=== PATIENT | female | born 1965 | race Caucasian/White ===

== ENCOUNTER → 2017-11-15 | Outpatient (CLI) | payer BC, OTHER ==
[~2017-11-15] MED LIST: OMEPRAZOLE MAGN20 MG PO; Ranitidine HCl300 MG PO; SUCR1 PO; SYNTHROID175 MCG PO; Synthroid/Levo0.2 MG PO
== END ==
LOC: LAB SHORT 12:21 → LAB 12:21
DX: R10.33 Periumbilical pain (principal)
CPT/HCPCS: 87086

== ENCOUNTER → 2017-11-17 | Outpatient (CLI) | payer BC, OTHER | END | disposition home or self-care (01) | LOC: LAB SHORT 14:46 → LAB 14:46 | PROVIDERS: Nurse Practitioner Women's Health | DX: Z12.4 Encounter for screening for malignant neoplasm of cervix (principal) | CPT/HCPCS: 87624; G0123 ==

== ENCOUNTER → 2018-02-13 | Outpatient (CLI) | payer BC, OTHER ==
[2018-02-13 17:01] LABS: BASOPHILS ABSOLUTE AUTO 0.03 K/mm3 (0.00-0.23); BASOPHILS PERCENT AUTO 1 % (0-2); EOSINOPHILS ABSOLUTE AUTO 0.27 K/mm3 (0.00-0.68); EOSINOPHILS PERCENT AUTO 7 % (0-6); Hematocrit 35.6 % (33.0-51.0); Hemoglobin 11.8 g/dL (11.5-16.0); IMMATURE GRAN ABSOLUTE AUTO 0.01 K/mm3 (0.00-0.10); IMMATURE GRAN PERCENT AUTO 0 % (0-1); LYMPHOCYTES ABSOLUTE AUTO 1.68 K/mm3 (0.84-5.20); LYMPHOCYTES PERCENT AUTO 40 % (21-46); MONOCYTES ABSOLUTE AUTO 0.42 K/mm3 (0.16-1.47); MONOCYTES PERCENT AUTO 10 % (4-13); Mean Corpuscular HGB 29.5 pg (26.0-34.0); Mean Corpuscular HGB Conc 33.1 g/dL (31.5-36.5); Mean Corpuscular Volume 89 fL (80-100); Mean Platelet Volume 9.8 fL (9.1-12.4); NEUTROPHILS ABSOLUTE AUTO 1.75 K/mm3 (1.96-9.15); NEUTROPHILS PERCENT AUTO 42 % (41-73); Platelet Count 219 K/mm3 (150-400); RDW Coefficient Variation 13.7 % (11.7-14.2); White Blood Cell Count 4.16 K/mm3 (4.00-11.30)
[2018-02-13 17:35] LABS: Alanine Aminotransfer (ALT/SGP 42 U/L (12-78); Albumin, Blood 3.9 g/dL (3.4-5.0); Albumin/Globulin Ratio 1.2 (0.8-1.8); Alk Phos 71 U/L (50-136); Anion Gap 8 mmol/L (6-16); Aspartate Aminotrans (AST/SGOT 24 U/L (12-37); Bilirubin, Total 0.6 mg/dL (0.1-1.0); Blood Urea Nitrogen 13 mg/dL (8-24); Bun/Creatinine Ratio 14.4 (12.0-20.0); CO2, Blood 26 mmol/L (21-32); Calcium, Blood 8.2 mg/dL (8.5-10.1); Chloride, Blood 105 mmol/L (98-108); Globulin, Blood 3.3 g/dL (2.2-4.0); Glomerular Filtration Rate >60 (60-); Glucose, Blood 116 mg/dL (70-99); Potassium, Blood 3.5 mmol/L (3.5-5.5); Sodium, Blood 139 mmol/L (136-145); Total Protein, Blood 7.2 g/dL (6.4-8.2)
== END | disposition home or self-care (01) ==
LOC: LAB SHORT 16:56 → LAB EV 16:56
PROVIDERS: Physician Assistant
DX: R53.83 Other fatigue (principal)
CPT/HCPCS: 80053; 82607; 84443; 85025

== ENCOUNTER 2018-03-03 13:41 | Emergency (ER) | payer BC, OTHER ==
[~2018-03-03] VITALS: Ht 167.6 cm; Wt 93.0 kg
[2018-03-03] MEDS ORDERED: LEVSOD137 PO (13:53)
[2018-03-03] MEDS ORDERED: LOSA25 PO (13:53)
[2018-03-03] MEDS ORDERED: PROG100 PO (13:53)
[2018-03-03] MEDS ORDERED: ESTRADIOL1 EAC1 TD (13:53)
[2018-03-03] MEDS ORDERED: FURO20 PO (13:54)
[2018-03-03] MEDS ORDERED: POTCHL10ER PO (13:55)
[2018-03-03] MEDS ORDERED: CYCL10 PO (15:27)
== END 2018-03-03 15:35 | disposition home or self-care (01) ==
LOC: ER 13:41
DX: T14.8XXA Other injury of unspecified body region, initial encounter (principal); M54.5 Low back pain; M25.562 Pain in left knee; M25.552 Pain in left hip; M25.521 Pain in right elbow; W18.30XA Fall on same level, unspecified, initial encounter; Z88.2 Allergy status to sulfonamides; Z88.8 Allergy status to other drugs, medicaments and biological substances; Z91.041 Radiographic dye allergy status
CPT/HCPCS: 72100; 73070; 73502; 73562-LT; 99284-25

== ENCOUNTER 2018-04-20 20:33 | Emergency (ER) | payer BC, OTHER ==
[~2018-04-20] VITALS: Ht 167.6 cm; Wt 93.0 kg
[~2018-04-20 20:33] MED LIST changes: +CYCL10 PO; +ESTRADIOL1 EAC1 TD; +FURO20 PO; +LEVSOD137 PO; +LOSA25 PO; +POTCHL10ER PO; +PROG100 PO
== END 2018-04-20 21:30 | disposition left against medical advice (07) ==
LOC: ER 20:33
DX: Z53.21 Procedure and treatment not carried out due to patient leaving prior to being seen by health care provider (principal)

== ENCOUNTER → 2018-08-17 | Outpatient (CLI) | payer BC, OTHER | END | disposition home or self-care (01) | LOC: LAB SHORT 17:24 → LAB 17:24 | DX: N89.8 Other specified noninflammatory disorders of vagina (principal) | CPT/HCPCS: 87070; 87205 ==

== ENCOUNTER → 2018-11-20 | Outpatient (CLI) | payer BC, OTHER ==
[2018-11-20 11:55] LABS: BASOPHILS ABSOLUTE AUTO 0.04 K/mm3 (0.00-0.23); BASOPHILS PERCENT AUTO 1 % (0-2); EOSINOPHILS ABSOLUTE AUTO 0.24 K/mm3 (0.00-0.68); EOSINOPHILS PERCENT AUTO 4 % (0-6); Hematocrit 34.8 % (33.0-51.0); Hemoglobin 10.7 g/dL (11.5-16.0); IMMATURE GRAN ABSOLUTE AUTO 0.03 K/mm3 (0.00-0.10); IMMATURE GRAN PERCENT AUTO 1 % (0-1); LYMPHOCYTES ABSOLUTE AUTO 2.18 K/mm3 (0.84-5.20); LYMPHOCYTES PERCENT AUTO 39 % (21-46); MONOCYTES ABSOLUTE AUTO 0.47 K/mm3 (0.16-1.47); MONOCYTES PERCENT AUTO 8 % (4-13); Mean Corpuscular HGB 27.2 pg (26.0-34.0); Mean Corpuscular HGB Conc 30.7 g/dL (31.5-36.5); Mean Corpuscular Volume 89 fL (80-100); Mean Platelet Volume 9.8 fL (9.1-12.4); NEUTROPHILS ABSOLUTE AUTO 2.69 K/mm3 (1.96-9.15); NEUTROPHILS PERCENT AUTO 48 % (41-73); Platelet Count 310 K/mm3 (150-400); RDW Coefficient Variation 14.6 % (11.7-14.2); RDW Standard Deviation 47.6 fL (35.1-46.3); Red Blood Cell Count 3.93 M/mm3 (3.80-5.20); White Blood Cell Count 5.65 K/mm3 (4.00-11.30)
[2018-11-20 12:05] LABS: Alanine Aminotransfer (ALT/SGP 42 U/L (12-78); Albumin, Blood 4.1 g/dL (3.4-5.0); Albumin/Globulin Ratio 1.1 (0.8-1.8); Alk Phos 73 U/L (40-126); Anion Gap 11 mmol/L (6-16); Aspartate Aminotrans (AST/SGOT 17 U/L (12-37); Bilirubin, Total 0.4 mg/dL (0.1-1.0); Blood Urea Nitrogen 11 mg/dL (8-24); CO2, Blood 28 mmol/L (21-32); Calcium, Blood 8.4 mg/dL (8.5-10.1); Chloride, Blood 103 mmol/L (98-108); Creatinine, Blood 0.92 mg/dL (0.40-1.00); Globulin, Blood 3.6 g/dL (2.2-4.0); Glomerular Filtration Rate >60 (60-); Glucose, Blood 89 mg/dL (70-99); Potassium, Blood 3.7 mmol/L (3.5-5.5); Sodium, Blood 142 mmol/L (136-145); Total Protein, Blood 7.7 g/dL (6.4-8.2)
== END ==
LOC: LAB SHORT 11:50 → LAB EV 11:50
PROVIDERS: Emergency Medicine
DX: R53.83 Other fatigue (principal)
CPT/HCPCS: 80053; 85025

== ENCOUNTER → 2018-12-16 | Outpatient (CLI) | payer BC, OTHER ==
[2018-12-17 14:29] LABS: Candida species (DNA Probe) Negative (NEGATIVE); G. vaginalis (DNA Probe) Negative (NEGATIVE); T. vaginalis (DNA Probe) Negative (NEGATIVE)
== END ==
LOC: LAB SHORT 08:34 → LAB EV 08:34
PROVIDERS: Physician Assistant Medical
DX: L29.3 Anogenital pruritus, unspecified (principal)
CPT/HCPCS: 87480; 87510; 87660

== ENCOUNTER 2019-06-15 09:40 | Day surgery (SDC) | payer OTHER ==
[~2019-06-15] VITALS: Ht 167.6 cm; Wt 95.3 kg
[~2019-06-15 09:40] MED LIST changes: +CETI5 PO
[2019-06-15] MEDS ORDERED: BENADRYL25 MG PO (10:04)
--- NOTE | 2019-06-15 10:15 | NUR ---
Ambulatory in Day Surgery History, Chart, Medications and Allergies reviewed before start of procedure. Lungs clear T/O to Auscultation. Patient confirms NPO status and agrees with scheduled surgery. Pre-Op teaching done. Pt verbalizes understanding.
--- NOTE | 2019-06-15 12:44 | NUR ---
ADMIT TO SURGICAL FLOOR PT ARRIVED TO UNIT FROM PACU AT 1235 TODAY. A/OX4 W/VSS. REPORTS PAIN AT TOLERABLE LEVEL. NO VAGINAL BLEEDING NOTED AND PACKING IN PLACE. CURRENTLY TOLERATING SIPS OF WATER. SPOUSE AT BEDSIDE. HAS CALL LIGHT WITHIN REACH.
[2019-06-15] MEDS ORDERED: EUTHYROX150 MCG PO (13:08)
[2019-06-15 15:56] LABS: BASOPHILS ABSOLUTE AUTO 0.02 K/mm3 (0.00-0.23); BASOPHILS PERCENT AUTO 0 % (0-2); EOSINOPHILS ABSOLUTE AUTO 0.04 K/mm3 (0.00-0.68); EOSINOPHILS PERCENT AUTO 1 % (0-6); Hemoglobin 11.4 g/dL (11.5-16.0); IMMATURE GRAN ABSOLUTE AUTO 0.03 K/mm3 (0.00-0.10); IMMATURE GRAN PERCENT AUTO 0 % (0-1); LYMPHOCYTES ABSOLUTE AUTO 0.59 K/mm3 (0.84-5.20); LYMPHOCYTES PERCENT AUTO 8 % (21-46); MONOCYTES ABSOLUTE AUTO 0.09 K/mm3 (0.16-1.47); MONOCYTES PERCENT AUTO 1 % (4-13); Mean Corpuscular HGB 27.5 pg (26.0-34.0); Mean Corpuscular HGB Conc 30.8 g/dL (31.5-36.5); Mean Corpuscular Volume 89 fL (80-100); Mean Platelet Volume 10.2 fL (9.1-12.4); NEUTROPHILS ABSOLUTE AUTO 6.61 K/mm3 (1.96-9.15); NEUTROPHILS PERCENT AUTO 90 % (41-73); Platelet Count 263 K/mm3 (150-400); RDW Coefficient Variation 13.7 % (11.7-14.2); RDW Standard Deviation 44.6 fL (35.1-46.3); Red Blood Cell Count 4.15 M/mm3 (3.80-5.20); White Blood Cell Count 7.38 K/mm3 (4.00-11.30)
--- NOTE | 2019-06-15 18:47 | NUR ---
SHIFT SUMMARY POD 0 S/P POSTERIOR REPAIR. PT IS A&OX4 W/VSS. NO VAGINAL BLEEDING NOTED. PACKING IN PLACE. PAIN MANAGED PER EMAR W/PO AND 1X IV. TOLERATING REGULAR DIET. IVF RUNNING PER EMAR. CURRENTLY AMBULATING IN HALLWAY WITH SOLE CEMENTER.
[2019-06-16 04:51] LABS: BASOPHILS ABSOLUTE AUTO 0.01 K/mm3 (0.00-0.23); BASOPHILS PERCENT AUTO 0 % (0-2); EOSINOPHILS PERCENT AUTO 0 % (0-6); Hematocrit 32.2 % (33.0-51.0); IMMATURE GRAN ABSOLUTE AUTO 0.03 K/mm3 (0.00-0.10); IMMATURE GRAN PERCENT AUTO 0 % (0-1); LYMPHOCYTES ABSOLUTE AUTO 1.06 K/mm3 (0.84-5.20); LYMPHOCYTES PERCENT AUTO 10 % (21-46); MONOCYTES ABSOLUTE AUTO 0.55 K/mm3 (0.16-1.47); MONOCYTES PERCENT AUTO 5 % (4-13); Mean Corpuscular HGB 27.9 pg (26.0-34.0); Mean Corpuscular HGB Conc 31.1 g/dL (31.5-36.5); Mean Corpuscular Volume 90 fL (80-100); Mean Platelet Volume 9.8 fL (9.1-12.4); NEUTROPHILS ABSOLUTE AUTO 8.73 K/mm3 (1.96-9.15); NEUTROPHILS PERCENT AUTO 84 % (41-73); Platelet Count 255 K/mm3 (150-400); RDW Coefficient Variation 13.7 % (11.7-14.2); RDW Standard Deviation 45.2 fL (35.1-46.3); Red Blood Cell Count 3.59 M/mm3 (3.80-5.20); White Blood Cell Count 10.38 K/mm3 (4.00-11.30)
--- NOTE | 2019-06-16 06:22 | NUR ---
Patient A&O x4. VSS. IVF infusing. TOlerating PO. Pain managed with medications. Hooks and Packing to be removed. ambulatory
--- NOTE | 2019-06-16 07:09 | NUR ---
packing and burgos removed. due to void
[2019-06-16 07:54] LABS: Creatinine, Blood 0.82 mg/dL (0.40-1.00); Glomerular Filtration Rate >60 (60-)
[2019-06-16] MEDS ORDERED: DOCU100 PO (08:04)
[2019-06-16] MEDS ORDERED: HYDR1TAB94 PO (08:05)
--- NOTE | 2019-06-16 11:00 | NUR ---
provided pt with discharge teaching, printed material, printed prescriptions. pt's peripheral IV has been removed. Pt states understanding of instructions. pt will call for ride and notify nursing staff.
--- NOTE | 2019-06-16 14:02 | NUR ---
Patient reports last bowel movement 06/16/19; normal, prior to surgery.
== END 2019-06-16 11:30 | disposition home or self-care (01) ==
LOC: ORSCMMR 09:40 → SURS 09:40 → ORSCMMR 09:41 → ORD 11:00 → ORSCMMR 11:00 → SURS 13:25 → ORSCMMR 06-16 11:30
PROVIDERS: Obstetrics & Gynecology Gynecology
PROC: 0JQC0ZZ Repair Pelvic Region Subcutaneous Tissue and Fascia, Open Approach (ICD-10-PCS; principal; 2019-06-15 10:30)
DX: N81.6 Rectocele (principal); I12.9 Hypertensive chronic kidney disease with stage 1 through stage 4 chronic kidney disease, or unspecified chronic kidney disease; N18.3 Chronic kidney disease, stage 3 (moderate); E03.9 Hypothyroidism, unspecified; E78.5 Hyperlipidemia, unspecified; Z79.899 Other long term (current) drug therapy; K21.9 Gastro-esophageal reflux disease without esophagitis; E66.9 Obesity, unspecified; Z68.33 Body mass index [BMI] 33.0-33.9, adult
CPT/HCPCS: 36415; 82565; 85025; A9270-GY; J0690; J1100; J1170; J2250; J2405; J2704; J3010; J7120; Q0163

== ENCOUNTER → 2019-07-04 | Outpatient (CLI) | payer OTHER ==
[~2019-07-04] MED LIST changes: +BENADRYL25 MG PO; +DOCU100 PO; +EUTHYROX150 MCG PO; +HYDR1TAB94 PO; +Keflex500 MG PO; +METPRE4DP PO; +Miralax17 GM PO; +Robaxin750 MG PO
[2019-07-04 19:42] LABS: Source, Urine Catheter
[2019-07-04 20:04] LABS: Bilirubin, Urine Neg (Neg); Blood, Urine 1+ (Neg); Glucose Qualitative, Urine Neg (Neg); Ketones, Urine Neg (Neg); Leukocyte Esterase, Urine Neg (Neg); Nitrite, Urine Neg (Neg); Protein, Urine Neg (Neg); Urobilinogen, Urine NORM (Normal)
[2019-07-04 20:14] LABS: Appearance, Urine Clear (Clear); Color, Urine Yellow (P-Yellow)
[2019-07-04 20:15] LABS: Bacteria Few /hpf; Red Blood Cells, Urine 0-2 /hpf (0-2); Squamous Epithelial Cells Mod /hpf (Few)
== END | disposition home or self-care (01) ==
LOC: LAB 19:40 → LAB SHORT 19:40
PROVIDERS: Obstetrics & Gynecology Gynecology
DX: R30.0 Dysuria (principal)
CPT/HCPCS: 81001

== ENCOUNTER 2019-07-28 22:27 | Emergency (ER) | payer OTHER ==
[~2019-07-28] VITALS: Ht 167.6 cm; Wt 95.2 kg
[~2019-07-28 22:27] MED LIST changes: -Keflex500 MG PO; -METPRE4DP PO; -Miralax17 GM PO; -Robaxin750 MG PO
[2019-07-28] MEDS ORDERED: METPRE4DP PO (23:31)
[2019-07-28] MEDS ORDERED: Robaxin750 MG PO (23:31)
[2019-07-28 23:40] LABS: BASOPHILS ABSOLUTE AUTO 0.02 K/mm3 (0.00-0.23); BASOPHILS PERCENT AUTO 0 % (0-2); EOSINOPHILS ABSOLUTE AUTO 0.05 K/mm3 (0.00-0.68); EOSINOPHILS PERCENT AUTO 1 % (0-6); Hematocrit 29.1 % (33.0-51.0); IMMATURE GRAN ABSOLUTE AUTO 0.02 K/mm3 (0.00-0.10); IMMATURE GRAN PERCENT AUTO 0 % (0-1); LYMPHOCYTES ABSOLUTE AUTO 0.64 K/mm3 (0.84-5.20); LYMPHOCYTES PERCENT AUTO 10 % (21-46); MONOCYTES ABSOLUTE AUTO 0.25 K/mm3 (0.16-1.47); MONOCYTES PERCENT AUTO 4 % (4-13); Mean Corpuscular HGB 27.1 pg (26.0-34.0); Mean Corpuscular HGB Conc 30.9 g/dL (31.5-36.5); Mean Corpuscular Volume 88 fL (80-100); Mean Platelet Volume 9.9 fL (9.1-12.4); NEUTROPHILS ABSOLUTE AUTO 5.42 K/mm3 (1.96-9.15); NEUTROPHILS PERCENT AUTO 85 % (41-73); Platelet Count 221 K/mm3 (150-400); RDW Coefficient Variation 14.6 % (11.7-14.2); RDW Standard Deviation 47.1 fL (35.1-46.3); Red Blood Cell Count 3.32 M/mm3 (3.80-5.20)
[2019-07-28 23:53] LABS: Influenza A Negative (NEGATIVE); Influenza B Negative (NEGATIVE)
[2019-07-28 23:57] LABS: Alanine Aminotransfer (ALT/SGP 31 U/L (12-78); Albumin, Blood 3.5 g/dL (3.4-5.0); Albumin/Globulin Ratio 0.9 (0.8-1.8); Alk Phos 82 U/L (50-136); Anion Gap 7 mmol/L (6-16); Aspartate Aminotrans (AST/SGOT 19 U/L (12-37); Bilirubin, Total 0.9 mg/dL (0.1-1.0); Blood Urea Nitrogen 8 mg/dL (8-24); Bun/Creatinine Ratio 10.8 (12.0-20.0); CO2, Blood 27 mmol/L (21-32); Calcium, Blood 8.9 mg/dL (8.5-10.1); Chloride, Blood 103 mmol/L (98-108); Creatinine, Blood 0.74 mg/dL (0.40-1.00); Globulin, Blood 3.9 g/dL (2.2-4.0); Glomerular Filtration Rate >60 (60-); Glucose, Blood 140 mg/dL (70-99); Potassium, Blood 3.9 mmol/L (3.5-5.5); Sodium, Blood 137 mmol/L (136-145); Total Protein, Blood 7.4 g/dL (6.4-8.2)
[2019-07-29 00:37] LABS: Source, Urine Clean Catch
[2019-07-29 00:40] LABS: Bilirubin, Urine Neg (Neg); Blood, Urine 1+ (Neg); Glucose Qualitative, Urine Neg (Neg); Ketones, Urine Neg (Neg); Leukocyte Esterase, Urine Neg (Neg); Nitrite, Urine Neg (Neg); Protein, Urine Neg (Neg); Specific Gravity, Urine 1.005 (1.003-1.022); Urobilinogen, Urine NORM (Normal)
[2019-07-29 00:42] LABS: Appearance, Urine Clear (Clear); Color, Urine Yellow (P-Yellow)
[2019-07-29 00:45] LABS: Bacteria Mod /hpf; Red Blood Cells, Urine 0-2 /hpf (0-2); Squamous Epithelial Cells Few /hpf (Few)
[2019-07-29] MEDS ORDERED: Keflex500 MG PO (03:39)
[2019-07-29] MEDS ORDERED: Miralax17 GM PO (03:39)
== END 2019-07-29 04:25 | disposition home or self-care (01) ==
LOC: ER 22:27
PROVIDERS: Emergency Medicine
DX: G89.18 Other acute postprocedural pain (principal); M54.5 Low back pain; Z88.2 Allergy status to sulfonamides; Z88.8 Allergy status to other drugs, medicaments and biological substances; Z91.09 Other allergy status, other than to drugs and biological substances; Z79.899 Other long term (current) drug therapy; Z98.1 Arthrodesis status
CPT/HCPCS: 74177; 80053; 81001; 83605; 85025; 87086; 87804; 96374-59; 96375; 96376; 99284-25; A9270-GY; J1170; J1885; J2405; Q9967

== ENCOUNTER → 2019-10-24 | Outpatient (CLI) | payer OTHER ==
[~2019-10-24] MED LIST changes: +Keflex500 MG PO; +METPRE4DP PO; +Miralax17 GM PO; +Robaxin750 MG PO
[2019-10-24 15:18] LABS: BASOPHILS ABSOLUTE AUTO 0.06 K/mm3 (0.00-0.23); BASOPHILS PERCENT AUTO 1 % (0-2); EOSINOPHILS ABSOLUTE AUTO 0.28 K/mm3 (0.00-0.68); EOSINOPHILS PERCENT AUTO 5 % (0-6); Hematocrit 34.7 % (33.0-51.0); IMMATURE GRAN ABSOLUTE AUTO 0.01 K/mm3 (0.00-0.10); IMMATURE GRAN PERCENT AUTO 0 % (0-1); LYMPHOCYTES ABSOLUTE AUTO 1.94 K/mm3 (0.84-5.20); LYMPHOCYTES PERCENT AUTO 34 % (21-46); MONOCYTES ABSOLUTE AUTO 0.55 K/mm3 (0.16-1.47); MONOCYTES PERCENT AUTO 10 % (4-13); Mean Corpuscular HGB 25.9 pg (26.0-34.0); Mean Corpuscular HGB Conc 31.7 g/dL (31.5-36.5); Mean Corpuscular Volume 82 fL (80-100); Mean Platelet Volume 10.2 fL (9.1-12.4); NEUTROPHILS ABSOLUTE AUTO 2.82 K/mm3 (1.96-9.15); NEUTROPHILS PERCENT AUTO 50 % (41-73); Platelet Count 287 K/mm3 (150-400); RDW Coefficient Variation 15.1 % (11.7-14.2); RDW Standard Deviation 44.6 fL (35.1-46.3); Red Blood Cell Count 4.25 M/mm3 (3.80-5.20); White Blood Cell Count 5.66 K/mm3 (4.00-11.30)
[2019-10-24 15:33] LABS: Alanine Aminotransfer (ALT/SGP 73 U/L (12-78); Albumin, Blood 4.1 g/dL (3.4-5.0); Albumin/Globulin Ratio 0.9 (0.8-1.8); Alk Phos 91 U/L (40-126); Anion Gap 8 mmol/L (6-16); Aspartate Aminotrans (AST/SGOT 39 U/L (12-37); Bilirubin, Total 0.7 mg/dL (0.1-1.0); Blood Urea Nitrogen 16 mg/dL (8-24); Bun/Creatinine Ratio 18.2 (12.0-20.0); CO2, Blood 29 mmol/L (21-32); Chloride, Blood 101 mmol/L (98-108); Creatinine, Blood 0.88 mg/dL (0.40-1.00); Globulin, Blood 4.4 g/dL (2.2-4.0); Glomerular Filtration Rate >60 (60-); Glucose, Blood 91 mg/dL (70-99); Sodium, Blood 138 mmol/L (136-145); Total Protein, Blood 8.5 g/dL (6.4-8.2)
== END | disposition home or self-care (01) ==
LOC: LAB SHORT 15:13 → LAB EV 15:13
PROVIDERS: Physician Assistant
DX: R06.00 Dyspnea, unspecified (principal)
CPT/HCPCS: 80053; 85025; 85379

== ENCOUNTER → 2019-11-11 | Outpatient (CLI) | payer OTHER ==
[2019-11-11 17:03] LABS: BASOPHILS ABSOLUTE AUTO 0.05 K/mm3 (0.00-0.23); BASOPHILS PERCENT AUTO 1 % (0-2); EOSINOPHILS ABSOLUTE AUTO 0.31 K/mm3 (0.00-0.68); EOSINOPHILS PERCENT AUTO 7 % (0-6); Hematocrit 34.1 % (33.0-51.0); Hemoglobin 10.5 g/dL (11.5-16.0); IMMATURE GRAN ABSOLUTE AUTO 0.01 K/mm3 (0.00-0.10); IMMATURE GRAN PERCENT AUTO 0 % (0-1); LYMPHOCYTES ABSOLUTE AUTO 1.74 K/mm3 (0.84-5.20); LYMPHOCYTES PERCENT AUTO 38 % (21-46); MONOCYTES ABSOLUTE AUTO 0.42 K/mm3 (0.16-1.47); MONOCYTES PERCENT AUTO 9 % (4-13); Mean Corpuscular HGB 25.5 pg (26.0-34.0); Mean Corpuscular HGB Conc 30.8 g/dL (31.5-36.5); Mean Corpuscular Volume 83 fL (80-100); Mean Platelet Volume 10.1 fL (9.1-12.4); NEUTROPHILS ABSOLUTE AUTO 2.02 K/mm3 (1.96-9.15); NEUTROPHILS PERCENT AUTO 45 % (41-73); Platelet Count 253 K/mm3 (150-400); RDW Coefficient Variation 15.6 % (11.7-14.2); RDW Standard Deviation 47.2 fL (35.1-46.3); Red Blood Cell Count 4.12 M/mm3 (3.80-5.20); White Blood Cell Count 4.55 K/mm3 (4.00-11.30)
[2019-11-11 17:11] LABS: Albumin, Blood 4.2 g/dL (3.4-5.0); Albumin/Globulin Ratio 1.1 (0.8-1.8); Bilirubin, Total 0.6 mg/dL (0.1-1.0); Bun/Creatinine Ratio 16.3 (12.0-20.0); Calcium, Blood 8.9 mg/dL (8.5-10.1); Creatinine, Blood 0.98 mg/dL (0.40-1.00); Globulin, Blood 3.9 g/dL (2.2-4.0); Total Protein, Blood 8.1 g/dL (6.4-8.2)
== END | disposition home or self-care (01) ==
LOC: LAB EV 16:45 → LAB SHORT 16:45
PROVIDERS: Physician Assistant
DX: R06.00 Dyspnea, unspecified (principal); R05 Cough
CPT/HCPCS: 80053; 83880; 85025; 85379; U0002

== ENCOUNTER → 2020-03-13 | Outpatient (CLI) | payer OTHER ==
[~2020-03-13] MED LIST changes: +DICY20 PO
[2020-03-13 14:53] LABS: Adenovirus F 40/41 Not Detected (NOT DETECT); Astrovirus Not Detected (NOT DETECT); Campylobacter Sp Not Detected (NOT DETECT); Cryptosporidium Not Detected (NOT DETECT); Cyclospora Cayetanensis Not Detected (NOT DETECT); E. Coli O157 Not Detected (NOT DETECT); Entamoeba Histolytica Not Detected (NOT DETECT); Enteroaggregative E. coli-EAEC Not Detected (NOT DETECT); Enteropathogenic E. coli-EPEC Not Detected (NOT DETECT); Enterotoxigenic E. coli-ETEC Not Detected (NOT DETECT); Giardia Lamblia Not Detected (NOT DETECT); Norovirus GI/GII Not Detected (NOT DETECT); Plesiomonas Shigelloides Not Detected (NOT DETECT); Rotavirus A Not Detected (NOT DETECT); Salmonella Sp Not Detected (NOT DETECT); Sapovirus Not Detected (NOT DETECT); Shiga Toxin-prod E. coli-STEC Not Detected (NOT DETECT); Shigella/Enteroin E. coli-EIEC Not Detected (NOT DETECT); Vibrio Cholerae Not Detected (NOT DETECT); Vibrio Sp Not Detected (NOT DETECT); Yersinia Enterocolitica Not Detected (NOT DETECT)
== END ==
LOC: LAB 12:07 → LAB SHORT 12:07 → LAB FUT 03-12 08:20
PROVIDERS: Emergency Medicine
DX: R19.7 Diarrhea, unspecified (principal)
CPT/HCPCS: 0097U

== ENCOUNTER 2020-05-03 18:41 | Emergency (ER) | payer OTHER ==
[~2020-05-03] VITALS: Ht 167.6 cm; Wt 95.2 kg
[2020-05-03 19:23] LABS: BASOPHILS ABSOLUTE AUTO 0.06 K/mm3 (0.00-0.23); BASOPHILS PERCENT AUTO 1 % (0-2); EOSINOPHILS ABSOLUTE AUTO 0.31 K/mm3 (0.00-0.68); EOSINOPHILS PERCENT AUTO 4 % (0-6); Hematocrit 37.9 % (33.0-51.0); Hemoglobin 11.6 g/dL (11.5-16.0); IMMATURE GRAN ABSOLUTE AUTO 0.04 K/mm3 (0.00-0.10); IMMATURE GRAN PERCENT AUTO 1 % (0-1); LYMPHOCYTES ABSOLUTE AUTO 1.85 K/mm3 (0.84-5.20); LYMPHOCYTES PERCENT AUTO 25 % (21-46); MONOCYTES PERCENT AUTO 10 % (4-13); Mean Corpuscular HGB 26.5 pg (26.0-34.0); Mean Corpuscular HGB Conc 30.6 g/dL (31.5-36.5); Mean Corpuscular Volume 87 fL (80-100); Mean Platelet Volume 10.4 fL (9.1-12.4); NEUTROPHILS ABSOLUTE AUTO 4.37 K/mm3 (1.96-9.15); NEUTROPHILS PERCENT AUTO 60 % (41-73); Platelet Count 270 K/mm3 (150-400); RDW Coefficient Variation 15.1 % (11.7-14.2); RDW Standard Deviation 48.1 fL (35.1-46.3); Red Blood Cell Count 4.38 M/mm3 (3.80-5.20); White Blood Cell Count 7.33 K/mm3 (4.00-11.30)
[2020-05-03 19:37] LABS: International Normalized Ratio 0.93
[2020-05-03 19:42] LABS: Alanine Aminotransfer (ALT/SGP 81 U/L (12-78); Albumin, Blood 4.4 g/dL (3.4-5.0); Albumin/Globulin Ratio 1.1 (0.8-1.8); Alk Phos 85 U/L (50-136); Anion Gap 10 mmol/L (6-16); Aspartate Aminotrans (AST/SGOT 47 U/L (12-37); Bilirubin, Total 0.5 mg/dL (0.1-1.0); Blood Urea Nitrogen 12 mg/dL (8-24); CO2, Blood 27 mmol/L (21-32); Calcium, Blood 9.2 mg/dL (8.5-10.1); Chloride, Blood 101 mmol/L (98-108); Creatinine, Blood 0.93 mg/dL (0.40-1.00); Ethanol (Alcohol), Blood, Med <3 mg/dL; Globulin, Blood 3.9 g/dL (2.2-4.0); Glomerular Filtration Rate >60 (60-); Glucose, Blood 130 mg/dL (70-99); Potassium, Blood 3.8 mmol/L (3.5-5.5); Sodium, Blood 138 mmol/L (136-145); Total Protein, Blood 8.3 g/dL (6.4-8.2)
[2020-05-03 20:29] LABS: Source, Urine Clean Catch
[2020-05-03 20:36] LABS: Appearance, Urine Clear (Clear); Bilirubin, Urine Neg (Neg); Blood, Urine 1+ (Neg); Color, Urine Yellow (P-Yellow); Glucose Qualitative, Urine Neg (Neg); Ketones, Urine Neg (Neg); Leukocyte Esterase, Urine 1+ (Neg); Nitrite, Urine Neg (Neg); Protein, Urine Neg (Neg); Specific Gravity, Urine 1.015 (1.003-1.022); Urobilinogen, Urine NORM (Normal)
[2020-05-03 20:46] LABS: Bacteria Rare /hpf; Red Blood Cells, Urine 0-2 /hpf (0-2); Squamous Epithelial Cells Few /hpf (Few)
[2020-05-03 21:32] LABS: U Amphetamine Screen Not Detected; U Barbituate Screen Not Detected; U Benzodiazapine Screen Not Detected; U Buprenorphine Screen Not Detected; U Cannabinoids Screen Not Detected; U Cocaine Screen Not Detected; U Methadone Screen Not Detected; U Methamphetamine Screen Not Detected; U Opiates Screen Not Detected; U Oxycodone Screen Not Detected; U Phencyclidine Screen Not Detected; U Propoxyphene Screen Not Detected
[2020-05-03] MEDS ORDERED: IBUP600 PO (21:54)
[2020-05-03] MEDS ORDERED: ONDA4ODT MM (21:54)
[2020-05-03] MEDS ORDERED: CYCL10 PO (21:54)
== END 2020-05-03 23:25 | disposition home or self-care (01) ==
LOC: ER 18:41
PROVIDERS: Emergency Medicine
DX: S09.90XA Unspecified injury of head, initial encounter (principal); S43.101A Unspecified dislocation of right acromioclavicular joint, initial encounter; S13.4XXA Sprain of ligaments of cervical spine, initial encounter; S39.012A Strain of muscle, fascia and tendon of lower back, initial encounter; S50.01XA Contusion of right elbow, initial encounter; S29.9XXA Unspecified injury of thorax, initial encounter; V86.59XA Driver of other special all-terrain or other off-road motor vehicle injured in nontraffic accident, initial encounter; Y92.410 Unspecified street and highway as the place of occurrence of the external cause
CPT/HCPCS: 36415; 70450; 71260; 72125; 73000; 73080; 74177; 80053; 81001; 83690; 85025; 85610; 87086; A9270; A9270-GY; G0480; L0160; Q9967

== ENCOUNTER → 2020-06-25 | Outpatient (CLI) | payer OTHER ==
[~2020-06-25] MED LIST changes: +IBUP600 PO; +ONDA4ODT MM
[2020-06-25 11:47] LABS: BASOPHILS ABSOLUTE AUTO 0.05 K/mm3 (0.00-0.23); BASOPHILS PERCENT AUTO 1 % (0-2); EOSINOPHILS ABSOLUTE AUTO 0.25 K/mm3 (0.00-0.68); EOSINOPHILS PERCENT AUTO 4 % (0-6); Hematocrit 36.3 % (33.0-51.0); Hemoglobin 11.8 g/dL (11.5-16.0); IMMATURE GRAN ABSOLUTE AUTO 0.01 K/mm3 (0.00-0.10); IMMATURE GRAN PERCENT AUTO 0 % (0-1); LYMPHOCYTES ABSOLUTE AUTO 1.59 K/mm3 (0.84-5.20); LYMPHOCYTES PERCENT AUTO 28 % (21-46); MONOCYTES ABSOLUTE AUTO 0.49 K/mm3 (0.16-1.47); MONOCYTES PERCENT AUTO 9 % (4-13); Mean Corpuscular HGB 27.1 pg (26.0-34.0); Mean Corpuscular HGB Conc 32.5 g/dL (31.5-36.5); Mean Corpuscular Volume 83 fL (80-100); Mean Platelet Volume 9.8 fL (9.1-12.4); NEUTROPHILS ABSOLUTE AUTO 3.25 K/mm3 (1.96-9.15); NEUTROPHILS PERCENT AUTO 58 % (41-73); Platelet Count 262 K/mm3 (150-400); RDW Coefficient Variation 14.6 % (11.7-14.2); RDW Standard Deviation 44.4 fL (35.1-46.3); Red Blood Cell Count 4.35 M/mm3 (3.80-5.20); White Blood Cell Count 5.64 K/mm3 (4.00-11.30)
[2020-06-25 11:58] LABS: Alanine Aminotransfer (ALT/SGP 83 U/L (12-78); Albumin, Blood 4.1 g/dL (3.4-5.0); Alk Phos 91 U/L (40-126); Anion Gap 11 mmol/L (6-16); Aspartate Aminotrans (AST/SGOT 40 U/L (12-37); Bilirubin, Total 0.7 mg/dL (0.1-1.0); Blood Urea Nitrogen 12 mg/dL (8-24); Bun/Creatinine Ratio 12.8 (12.0-20.0); CO2, Blood 27 mmol/L (21-32); Calcium, Blood 9.4 mg/dL (8.5-10.1); Chloride, Blood 98 mmol/L (98-108); Creatinine, Blood 0.94 mg/dL (0.40-1.00); Globulin, Blood 4.2 g/dL (2.2-4.0); Glomerular Filtration Rate >60 (60-); Glucose, Blood 124 mg/dL (70-99); Potassium, Blood 4.2 mmol/L (3.5-5.5); Sodium, Blood 136 mmol/L (136-145); Total Protein, Blood 8.3 g/dL (6.4-8.2)
== END | disposition home or self-care (01) ==
LOC: LAB SHORT 11:44
PROVIDERS: Family Medicine
DX: R10.9 Unspecified abdominal pain (principal)
CPT/HCPCS: 80053; 85025

== ENCOUNTER → 2020-12-30 | Outpatient (CLI) | payer OTHER ==
[2020-12-30 14:07] LABS: Microalbumin, Urine Quant. <5.000 mg/L (0.000-20.000); Protein, Urine Quantitative <5.0 mg/dL (0.0-11.9)
== END | disposition home or self-care (01) ==
LOC: LAB FUT 12-27 10:45 → LAB 12:39 → LAB SHORT 12:39
PROVIDERS: Internal Medicine Nephrology
DX: N18.30 Chronic kidney disease, stage 3 unspecified (principal); D63.1 Anemia in chronic kidney disease; N25.81 Secondary hyperparathyroidism of renal origin; E55.9 Vitamin D deficiency, unspecified; E78.00 Pure hypercholesterolemia, unspecified; R76.9 Abnormal immunological finding in serum, unspecified; R94.5 Abnormal results of liver function studies; R94.6 Abnormal results of thyroid function studies
CPT/HCPCS: 81050; 82043; 82570; 84156

== ENCOUNTER → 2021-09-15 | Outpatient (CLI) | payer OTHER ==
[2021-09-15 15:54] LABS: Free Thyroxine 1.45 ng/dL (0.70-1.60); Thyroid Stimulating Hormone 0.027 uIU/mL (0.360-4.800)
== END | disposition home or self-care (01) ==
LOC: LAB SHORT 15:06 → LAB 15:06
PROVIDERS: Physician Assistant
DX: R06.00 Dyspnea, unspecified (principal); R53.83 Other fatigue
CPT/HCPCS: 84439; 84443; 84481; 85379

== ENCOUNTER 2021-09-21 09:55 | Emergency (ER) | payer OTHER ==
[~2021-09-21] VITALS: Ht 167.6 cm; Wt 93.0 kg
[2021-09-21] MEDS ORDERED: HYDR1TAB94 PO (11:34)
== END 2021-09-21 12:45 | disposition home or self-care (01) ==
LOC: ER 09:55
DX: S82.842A Displaced bimalleolar fracture of left lower leg, initial encounter for closed fracture (principal); Z79.899 Other long term (current) drug therapy; Z88.2 Allergy status to sulfonamides; Z88.8 Allergy status to other drugs, medicaments and biological substances; X37.1XXA Tornado, initial encounter
CPT/HCPCS: 29515; 73610; 96372; 99283-25; J3010

== ENCOUNTER → 2022-01-20 | Outpatient (CLI) | payer OTHER | END | disposition home or self-care (01) | LOC: LAB SHORT 12:00 → LAB 12:00 | DX: N39.0 Urinary tract infection, site not specified (principal) | CPT/HCPCS: 87086 ==

== ENCOUNTER → 2022-02-15 | Outpatient (CLI) | payer OTHER | END | disposition home or self-care (01) | LOC: LAB 16:48 → LAB SHORT 16:48 | DX: N39.0 Urinary tract infection, site not specified (principal) | CPT/HCPCS: 87077; 87086; 87186 ==

== ENCOUNTER → 2023-06-07 | Outpatient (CLI) | payer OTHER | END | disposition home or self-care (01) | LOC: LAB SHORT 12:00 → LAB 12:00 | DX: N39.0 Urinary tract infection, site not specified (principal) | CPT/HCPCS: 87086 ==

== ENCOUNTER → 2023-06-15 | Outpatient (CLI) | payer OTHER | LOC: LAB 16:45 → LAB SHORT 16:45 | DX: N39.0 Urinary tract infection, site not specified (principal) | CPT/HCPCS: 87086 ==

== ENCOUNTER → 2024-12-26 | Outpatient (CLI) | payer OTHER | LOC: LAB 13:50 → LAB SHORT 13:50 | DX: R30.0 Dysuria (principal) | CPT/HCPCS: 87086 ==